=== PATIENT | male | born 1955 | race Two or more races ===

== ENCOUNTER 2017-01-01 10:34 | Observation (INO) | payer OTHER ==
[2017-01-01 10:59] LABS: Hematocrit 45.2 % (42.0-52.0); Hemoglobin 14.9 gm/dL (13.5-18.0); Mean Cell Volume 83.7 fl (78-100); Mean Corpuscular Hemoglobin 27.6 pg (27-31); Mean Platelet Volume 8.9 fl (6.0-9.5); Platelet Count 294 K/mm3 (150-450); Red Cell Distribution Width 12.9 % (11.5-14.0); White Blood Count 6.4 K/mm3 (4.0-10.5)
[2017-01-01 11:09] LABS: Total Cells Counted 100
[2017-01-01 11:12] LABS: INR 1.15 INR (0.90-1.10); Partial Thrombolplastin Time 27.1 Seconds (24-32)
[2017-01-01 11:15] LABS: Atypical (Reactive) Lymph 4 % (0-2); Eosinophil 4 % (0-3); Lymphocyte 38 % (20-51); Monocyte 5 % (0-9); Neutrophil 49 % (42-75); Neutrophil # 3.1 K/mm3 (1.3-6.0); Platelet Estimate Normal (NORMAL); RBC Morphology Normal (NORMAL)
[2017-01-01 11:16] LABS: ALT 110 U/L (19-67); AST 53 U/L (0-48); Albumin * 3.5 gm/dl (3.4-5.0); Alkaline Phosphatase * 91 U/L (50-170); Anion Gap 11.7 mmol/L (6.8-13.8); BUN/Creatinine Ratio 14.4 (9.0-21.6); Bilirubin, Total 0.6 mg/dL (0.0-1.1); Blood Urea Nitrogen 16 mg/dL (6-23); Ca. Corrected For Albumin 8.8 mg/dL (8.4-10.2); Calcium * 8.7 mg/dL (7.9-10.9); Chloride 103 mmol/L (97-106); Glucose * 103 mg/dL (70-110); Potassium 3.7 mmol/L (3.4-4.6); Sodium 141 mmol/L (132-142); Total Protein 7.1 gm/dL (6.2-8.2)
[2017-01-01 11:17] LABS: Troponin I Less than 0.017 ng/ml (0.00-0.10)
--- NOTE | 2017-01-01 11:48 | ERNOTE ---
Chest Pain/Cardiac HPI Date of Service: 01/01/17 Chief Complaint: Chest Pain Time Seen by Provider: 01/01/17 10:48 Source: patient Immunizations: IMMUNIZATION HX Immunizations Up to Date Yes History of Influenza Vaccine No Hx Pneumococcal Vaccination No Allergies/Adverse Reactions: Allergies No Known Allergies Allergy (Unverified 01/01/17 10:47) Home Medications: HOME MEDICATIONS Amlodipine Besylate 10 mg PO DAILY 01/01/17 [Last Taken Unknown] Irbesartan [Avapro] 300 mg PO DAILY 01/01/17 [Last Taken Unknown] Omeprazole Magnesium [Prilosec Otc] 40 mg PO DAILY 01/01/17 [Last Taken Unknown] Narrative: Here for chest pain which began this am. Pain was substernal and slightly to the left of the sternum and radiated to the neck region. pain was squeezing in nature but resolved upon arrival to ED. He felt dizzy with the chest pain. Denies cough or congestion. Patient Can show me where the pain was earlier on today however he states that the pain has subsided. Review of Systems - Review of Systems Constitutional: Present: no symptoms reported EYE: Present: no symptoms reported ENT: Present: no symptoms reported Respiratory: Present: no symptoms reported Cardiology: Present: See HPI Gastrointestinal/Abdominal: Present: no symptoms reported Musculoskeletal: Present: no symptoms reported Skin: Present: no symptoms reported Neurological: Present: dizziness/light-headedness - with chest pain this am - Patient's Past Medical History Patient History - Medical: No pertinent hx Patient History - Cardiac/Respiratory: Hypertension, Hyperlipidemia Patient History - Cancer: No Hx of Cancer Patient History - Surgical Procedures: No surgical history Patient History - Other: None - Social History Living Situations: home Abuse History: No History of abuse Psych History: No pertinent hx Smoking Status: Never smoker Alcohol Use: none Drug Use: none - Immunizations Immunizations Up to Date: Yes Hx Pneumococcal Vaccination: No History of Influenza Vaccine: No Physical Exam - Physical Exam General Appearance: Present: wd/wn, alert, no apparent distress Eye Exam: Normal inspection: bilateral Ears, Nose, Throat: Present: normal ENT inspection Neck: Present: normal inspection, nontender, supple Respiratory: Present: no respiratory distress, normal breath sounds, no accessory muscle use, chest nontender, lungs clear Cardiovascular/Chest: Present: regular rate, rhythm, no murmur, normal peripheral pulses Gastrointestinal/Abdominal: Present: normal bowel sounds, nontender, nondistended, soft, no organomegaly Back Exam: Present: normal inspection, normal range of motion, no CVA tenderness , no vertebral tenderness Extremity Exam: Present: normal inspection, non-tender, normal range of motion Neurological Exam: Present: alert, oriented, normal mood/affect, no motor/ sensory deficits ED Progress - Results and Orders Patient's Lab Results:: I have reviewed the patient's lab results. - Vital Signs Patient's Vital Signs:: I have reviewed the patient's vital signs. Vital Signs: Vital Signs 01/01/17 01/01/17 01/01/17 10:40 10:50 11:03 Temperature 36.5 C Pulse Rate 65 69 59 L Respiratory 15 12 Rate Blood Pressure 174/112 146/83 O2 Sat by Pulse 96 96 Oximetry 01/01/17 11:26 Temperature 36.4 C L Pulse Rate 58 L Respiratory 15 Rate Blood Pressure 127/76 O2 Sat by Pulse 96 Oximetry - EKG EKG: NSR - X-Ray X-Ray #1 X-Ray: chest - Progress/Reassessment Chief Complaint: Chest Pain Plan - Plan Plan: This patient had one episode of chest pain this morning during which she felt dizzy. He does have hyperlipidemia and he has hypertension. Dr. Juan Jose Broderick was consulted in regards to this patient it is my opinion that this patient needs to come in for observation and to have a second set of enzymes drawn. he' ll be admitted to the [facility] floor. Departure - Departure Clinical Impression: Chest pain Qualifiers: Chest pain type: unspecified Qualified Code(s): R07.9 - Chest pain, unspecified Disposition: [facility] Condition: Fair Referrals: Carli Song, [facility] SPECIALIST [Primary Care Provider] -
[2017-01-01 19:48] VITALS: BP 144/82
--- NOTE | 2017-01-01 21:04 | HP ---
<Nia Prado - Last Filed: 01/01/17 20:45> Chief Complaint - Chief Complaint Date of Service: 01/01/17 Time of Service: 19:18 Chief Complaint: Chest pain History of Present Illness: 61 years old male adm to the hospital from ER with reports of chest pain. pt stated he was awaken with substernal chest pain. He denies nausea, vomiting, diaphoresis, palpitation or shortness of breath.Per pt was having nausea, vomiting and diarrhea unrelated to recent event but due to food he had earlier in the week. PMH significant for GERD, hyperlipidemia and hypertension and pt have been non-compliance with medications per . Pt have extensive family history of heart disease, he his schedule for out-pt stress test on Sunday and follow up with PCP upon discharge.Cardiac makers and EKG unremarkable, on adm BP 146/88. During this adm pt remain medically stable for discharge home.Plan of care discussed with pt and they both verbalized and agrees. - Patient's Past Medical History Patient History - Medical: GERD Patient History - Cardiac/Respiratory: Hypertension, Hyperlipidemia Patient History - Cancer: No Hx of Cancer Patient History - Surgical Procedures: Colonoscopy, Orthopedic - left knee fracture with plate Patient History - Other: None - Family History Mother Family History - Medical: , Diabetes Type 2 Insulin Dependent, Seizures Family History - Cardiac/Respiratory: Hypertension Father Family History - Medical: , Renal Disease Family History - Cardiac/Respiratory: Coronary Heart Disease, Hypertension - Social History Living Situations: spouse Abuse History: No History of abuse Psych History: No pertinent hx Smoking Status: Never smoker Have you smoked in the past 12 months: No Do you dip or chew tobacco: No Patient requests Smoking Cessation Consult: No Initiate information on Smoking Cessation: No Alcohol Use: none Drug Use: none - Immunizations Immunizations Up to Date: Yes Hx Pneumococcal Vaccination: No History of Influenza Vaccine: No Review Of Systems (GEN) - Review of Systems Generalized/Overall Review: Present: No Symptoms Reported EENTM: Present: No Symptoms Reported Respiratory: Present: No Symptoms Reported Cardiac: Present: No Symptoms Reported Abdominal: Present: No Symptoms Reported Genitourinary: Present: No Symptoms Reported Musculoskeletal: Present: No Symptoms Reported Neurological: Present: No Symptoms Reported Skin: Present: No Symptoms Reported Immunizations: IMMUNIZATION HX Immunizations Up to Date Yes History of Influenza Vaccine No Hx Pneumococcal Vaccination No Allergies/Adverse Reactions: Allergies Allergy/AdvReac Type Severity Reaction Status Date / Time No Known Allergies Allergy Unverified 01/01/17 10:47 Home Medications: HOME MEDICATIONS Amlodipine Besylate 10 mg PO DAILY 01/01/17 [Last Taken Unknown] Irbesartan [Avapro] 300 mg PO DAILY 01/01/17 [Last Taken Unknown] Omeprazole Magnesium [Prilosec Otc] 40 mg PO DAILY 01/01/17 [Last Taken Unknown] Exam - Exam Vital Signs: Vital Signs - Last Taken Temp 37.1 C 01/01/17 19:44 Pulse 70 01/01/17 19:44 Resp 17 01/01/17 19:44 BP 144/82 01/01/17 19:44 Pulse Ox 95 01/01/17 19:44 Constitutional: Present: Alert, Oriented x3, Cooperative, Well developed, No distress, Middle aged ENT Exam: Present: moist mucous membranes Eye Exam: bilateral eye: PERRL Neck: Present: full range of motion Back Exam: Present: no CVA tenderness Breasts: Present: Exam deferred Respiratory: Present: chest non-tender, lungs clear, normal breath sounds, no respiratory distress, no accessory muscle use Cardiovascular/Chest: Present: normal peripheral pulses, regular rate, rhythm, no chest tenderness, no murmur Peripheral Pulses: radial (R): 3+, radial (L): 3+ Abdomen: Present: Normal bowel sounds, soft, nontender, nondistended, no rebound tenderness /Rectal: Present: Exam deferred Extremity: Present: normal range of motion Skin Exam: Present: normal color, warm/dry Neurologic: Present: oriented x 3 Appearance: Present: appropriate appearance Eye contact: Present: cooperative, good eye contact Thoughts: Present: normal thought pattern Diagnostic Studies: Laboratory Results WBC 6.4 K/mm3 (4.0-10.5) 01/01/17 10:51 RBC 5.40 M/mm3 (4.7-6.0) 01/01/17 10:51 Hgb 14.9 gm/dL (13.5-18.0) 01/01/17 10:51 Hct 45.2 % (42.0-52.0) 01/01/17 10:51 MCV 83.7 fl (78-100) 01/01/17 10:51 MCH 27.6 pg (27-31) 01/01/17 10:51 MCHC 33.0 g/dl (32-36) 01/01/17 10:51 RDW 12.9 % (11.5-14.0) 01/01/17 10:51 Plt Count 294 K/mm3 (150-450) 01/01/17 10:51 MPV 8.9 fl (6.0-9.5) 01/01/17 10:51 Immature Gran % (Auto) Pan Dumper 01/01/17 10:51 Immature Gran # (Auto) Pan Dumper 01/01/17 10:51 Neutrophils % Pan Dumper 01/01/17 10:51 Neutrophils % (Manual) 49 % (42-75) 01/01/17 10:51 Lymphocytes % Pan Dumper 01/01/17 10:51 Lymphocytes % (Manual) 38 % (20-51) 01/01/17 10:51 Monocytes % Pan Dumper 01/01/17 10:51 Monocytes % (Manual) 5 % (0-9) 01/01/17 10:51 Eosinophils % Pan Dumper 01/01/17 10:51 Eosinophils % (Manual) 4 % (0-3) H 01/01/17 10:51 Basophils % Pan Dumper 01/01/17 10:51 Nucleated RBC % Pan Dumper 01/01/17 10:51 Neutrophils # Pan Dumper 01/01/17 10:51 Neutrophils # (Manual) 3.1 K/mm3 (1.3-6.0) 01/01/17 10:51 Lymphocytes # Pan Dumper 01/01/17 10:51 Lymphocytes # (Manual) 2.4 k/mm3 (1.5-3.5) 01/01/17 10:51 Monocytes # Pan Dumper 01/01/17 10:51 Monocytes # (Manual) 0.3 k/mm3 (0.0-1.0) 01/01/17 10:51 Eosinophils # Pan Dumper 01/01/17 10:51 Eosinophils # (Manual) 0.3 k/mm3 (0.0-0.7) 01/01/17 10:51 Absolute Basophils Pan Dumper 01/01/17 10:51 Atypic/Reactive Lymphs 4 % (0-2) H 01/01/17 10:51 Platelet Estimate Normal (NORMAL) 01/01/17 10:51 RBC Morphology Normal (NORMAL) 01/01/17 10:51 PT 12.0 Seconds (9.4-11.4) H 01/01/17 10:51 INR (Anticoag Therapy) 1.15 INR (0.90-1.10) H 01/01/17 10:51 PTT (Satish) 27.1 Seconds (24-32) 01/01/17 10:51 Sodium 141 mmol/L (132-142) 01/01/17 10:51 Plasma Sodium 141 mmol/L (130-142) 01/01/17 10:51 Potassium 3.7 mmol/L (3.4-4.6) 01/01/17 10:51 Chloride 103 mmol/L (97-106) 01/01/17 10:51 Carbon Dioxide 30.0 mmol/L (24-32.6) 01/01/17 10:51 Anion Gap 11.7 mmol/L (6.8-13.8) 01/01/17 10:51 BUN 16 mg/dL (6-23) 01/01/17 10:51 Creatinine 1.11 mg/dL (0.4-1.4) 01/01/17 10:51 Est GFR (Non-Af Amer) 72 mL/min (60-130) 01/01/17 10:51 BUN/Creatinine Ratio 14.4 (9.0-21.6) 01/01/17 10:51 Random Glucose 103 mg/dL (70-110) 01/01/17 10:51 Calcium 8.7 mg/dL (7.9-10.9) 01/01/17 10:51 Calcium Adj for Albumin 8.8 mg/dL (8.4-10.2) 01/01/17 10:51 Total Bilirubin 0.6 mg/dL (0.0-1.1) 01/01/17 10:51 AST 53 U/L (0-48) H 01/01/17 10:51 ALT 110 U/L (19-67) H 01/01/17 10:51 Alkaline Phosphatase 91 U/L (50-170) 01/01/17 10:51 Troponin I Less than 0.017 ng/ml (0.00-0.10) 01/01/17 18:59 Total Protein 7.1 gm/dL (6.2-8.2) 01/01/17 10:51 Albumin 3.5 gm/dl (3.4-5.0) 01/01/17 10:51 Assessment/Plan - Narrative Narrative: Chest pain vs epigastic discomfort Initial troponin and EKG were WNL Repeats no changes Continue with home dose of medications Aspirin 81mg daily and follow up for schedule stress test. GERD- stable continue with protonix at home Hypertension continue home dose of medications Monitor vital signs Hyperlipidemia Monitor lipid panel with PCP Diet and exercise recommendations Code status : full code GI ppx protonix VTE ppx ambulate Anticipate discharge home today Time 35 minutes - Assessment/Plan (1) Chronic GERD Problem: Chronic (2) Chest pain Problem: Acute QualifierTitle: Chest pain type: unspecified Qualified Code(s): R07.9 - Chest pain, unspecified <Hernán Del Toro - Last Filed: 01/02/17 17:39> Immunizations: IMMUNIZATION HX Immunizations Up to Date Yes History of Influenza Vaccine No Hx Pneumococcal Vaccination No Exam - Exam Vital Signs: Vital Signs - Last Taken Temp 37.1 C 01/01/17 19:44 Pulse 70 01/01/17 19:44 Resp 17 01/01/17 19:44 BP 144/82 01/01/17 19:44 Pulse Ox 95 01/01/17 19:44 Diagnostic Studies: Laboratory Results WBC 6.4 K/mm3 (4.0-10.5) 01/01/17 10:51 RBC 5.40 M/mm3 (4.7-6.0) 01/01/17 10:51 Hgb 14.9 gm/dL (13.5-18.0) 01/01/17 10:51 Hct 45.2 % (42.0-52.0) 01/01/17 10:51 MCV 83.7 fl (78-100) 01/01/17 10:51 MCH 27.6 pg (27-31) 01/01/17 10:51 MCHC 33.0 g/dl (32-36) 01/01/17 10:51 RDW 12.9 % (11.5-14.0) 01/01/17 10:51 Plt Count 294 K/mm3 (150-450) 01/01/17 10:51 MPV 8.9 fl (6.0-9.5) 01/01/17 10:51 Immature Gran % (Auto) Pan Dumper 01/01/17 10:51 Immature Gran # (Auto) Pan Dumper 01/01/17 10:51 Neutrophils % Pan Dumper 01/01/17 10:51 Neutrophils % (Manual) 49 % (42-75) 01/01/17 10:51 Lymphocytes % Pan Dumper 01/01/17 10:51 Lymphocytes % (Manual) 38 % (20-51) 01/01/17 10:51 Monocytes % Pan Dumper 01/01/17 10:51 Monocytes % (Manual) 5 % (0-9) 01/01/17 10:51 Eosinophils % Pan Dumper 01/01/17 10:51 Eosinophils % (Manual) 4 % (0-3) H 01/01/17 10:51 Basophils % Pan Dumper 01/01/17 10:51 Nucleated RBC % Pan Dumper 01/01/17 10:51 Neutrophils # Pan Dumper 01/01/17 10:51 Neutrophils # (Manual) 3.1 K/mm3 (1.3-6.0) 01/01/17 10:51 Lymphocytes # Pan Dumper 01/01/17 10:51 Lymphocytes # (Manual) 2.4 k/mm3 (1.5-3.5) 01/01/17 10:51 Monocytes # Pan Dumper 01/01/17 10:51 Monocytes # (Manual) 0.3 k/mm3 (0.0-1.0) 01/01/17 10:51 Eosinophils # Pan Dumper 01/01/17 10:51 Eosinophils # (Manual) 0.3 k/mm3 (0.0-0.7) 01/01/17 10:51 Absolute Basophils Pan Dumper 01/01/17 10:51 Atypic/Reactive Lymphs 4 % (0-2) H 01/01/17 10:51 Platelet Estimate Normal (NORMAL) 01/01/17 10:51 RBC Morphology Normal (NORMAL) 01/01/17 10:51 PT 12.0 Seconds (9.4-11.4) H 01/01/17 10:51 INR (Anticoag Therapy) 1.15 INR (0.90-1.10) H 01/01/17 10:51 PTT (Mayes) 27.1 Seconds (24-32) 01/01/17 10:51 Sodium 141 mmol/L (132-142) 01/01/17 10:51 Plasma Sodium 141 mmol/L (130-142) 01/01/17 10:51 Potassium 3.7 mmol/L (3.4-4.6) 01/01/17 10:51 Chloride 103 mmol/L (97-106) 01/01/17 10:51 Carbon Dioxide 30.0 mmol/L (24-32.6) 01/01/17 10:51 Anion Gap 11.7 mmol/L (6.8-13.8) 01/01/17 10:51 BUN 16 mg/dL (6-23) 01/01/17 10:51 Creatinine 1.11 mg/dL (0.4-1.4) 01/01/17 10:51 Est GFR (Non-Af Amer) 72 mL/min (60-130) 01/01/17 10:51 BUN/Creatinine Ratio 14.4 (9.0-21.6) 01/01/17 10:51 Random Glucose 103 mg/dL (70-110) 01/01/17 10:51 Calcium 8.7 mg/dL (7.9-10.9) 01/01/17 10:51 Calcium Adj for Albumin 8.8 mg/dL (8.4-10.2) 01/01/17 10:51 Total Bilirubin 0.6 mg/dL (0.0-1.1) 01/01/17 10:51 AST 53 U/L (0-48) H 01/01/17 10:51 ALT 110 U/L (19-67) H 01/01/17 10:51 Alkaline Phosphatase 91 U/L (50-170) 01/01/17 10:51 Troponin I Less than 0.017 ng/ml (0.00-0.10) 01/01/17 18:59 Total Protein 7.1 gm/dL (6.2-8.2) 01/01/17 10:51 Albumin 3.5 gm/dl (3.4-5.0) 01/01/17 10:51 Assessment/Plan - Narrative Narrative: I have reviewed the entire record and directly supervised our nurse practitioner in all her care for this patient. Primary thrust at this point will be the stress test followed up with a visit to his usual health care provider.
[2017-01-02] MEDS ORDERED: PANTOPRAZOLE SODIUM 40 MG TABLET.EC PO SCH (07:00)
[2017-01-02] MEDS ORDERED: LOSARTAN POTASSIUM 50 MG TABLET PO SCH (09:00)
[2017-01-02] MEDS ORDERED: amLODIPine BESYLATE 10 MG TABLET PO SCH (09:00)
== END 2017-01-01 21:45 | disposition home or self-care (01) ==
LOC: ER 10:34 → MS 11:48
PROVIDERS: ADMIT Allergy & Immunology; ATTEND Allergy & Immunology
DX: R07.9 Chest pain, unspecified (principal); K21.9 Gastro-esophageal reflux disease without esophagitis; I10 Essential (primary) hypertension; E78.5 Hyperlipidemia, unspecified
CPT/HCPCS: 36415; 71020; 80053; 84484; 85007; 85025; 85610; 85730; 93005; 99284; G0378